=== PATIENT | male | born 1965 | race Caucasian/White ===

== ENCOUNTER 2024-10-22 14:03 | Emergency (ER) | payer BC, SELFPAY ==
[2024-10-22 14:06] VITALS: BP 143/97
--- NOTE | 2024-10-22 15:24 | ED.GENMED ---
History of Present Illness
General
Chief Complaint: Skin Surface Trauma
Source: patient
Exam Limitations: none
Time Seen by Provider: 10/22/24 14:09
Nursing documentation reviewed up to this point in time: agreed with
History of Present Illness
History of Present Illness:
58-year-old male presenting to the emergency department today with concerns of a laceration to his left hand that occurred from a clam knife prior to arrival. He claims the blade was clean. Denies additional concerns no numbness or weakness.
Review of Systems
Review of Systems
Allergies reviewed?: Yes
All Other Systems: ROS reviewed and negative except as documented in HPI and ROS
Phy Exam
Physical Exam
Physical Exam:
GENERAL: Alert , in no apparent distress
EYE: pupils equal and reactive
NECK: Supple, no significant adenopathy.
ENT: o/p clr, mmm.
CARDIAC: Regular rate and rhythm .
LUNGS: Clear breath sounds bilaterally, no acute respiratory distress, no wheezes/rales/rhonchi
ABDOMEN: Soft, without focal tenderness, no r/g, no cvat
NEUROLOGICAL: Alert and oriented, no focal neuro deficits
SKIN: Laceration to the left thenar eminence centimeters in length subcutaneous no tendon involvement explored to its base no foreign body seen warm and dry, skin intact.
MUSCULOSKELETAL: No edema, well perfused.
PSYCH: Normal and appropriate interaction.
Course
Orders/Labs/Results
Orders:
Orders
10/22/24 15:24
Tetanus/Diphth/Acelpertussis [Adacel] 0.5 ml IM .ONCE ONE
Vital Signs
Initial and Last Documented VS:
Initial Vital Signs
Temp Pulse Resp BP Pulse Ox
98.3 F 71 16 143/97 98
10/22/24 14:06 10/22/24 14:06 10/22/24 14:06 10/22/24 14:06 10/22/24 14:06
Last Documented Vital Signs
Temp Pulse Resp BP Pulse Ox
98.3 F 71 16 143/97 98
10/22/24 14:06 10/22/24 14:06 10/22/24 14:06 10/22/24 14:06 10/22/24 14:06
Procedures
Laceration Closure
Left Hand:
Status of Wound: clean
Size of Wound in cm: 3.5
Description of Wound Edges: sharp
Preparation: cleaned with saline
Anesthesia: 1% Lidocaine with epi
Revision/Debridement: routine- no revision and irrigate-direct pressure
Wound exploration: explored to base- no FB and no tendon involvement
Type of Closure: single layer closure
Skin Closure Material: 4-0 nylon
Number of sutures: 6
MDM/Problems Addressed
MDM/Problems Addressed:
58-year-old male presenting to the emergency department today with concerns of laceration to his left hand from a clam knife. Laceration was very clean in appearance was cleaned thoroughly here and closed with 6 not dissolving stitches. Otherwise
he also is on antibiotics for pneumonia which should cover as prophylaxis for his laceration. Otherwise stable for outpatient management return precautions given. Advised for suture removal in 10 to 14 days.
*Critical Care Note
Total Time (30-74mins, 75-104mins- exclusive of procedures): Not Applicable
ED Attending Note
-
Portions of this chart may have been created with voice recognition software.� Occasional wrong word or��sound alike� substitutions may have occurred due to the inherent limitations of voice recognition software.
Discharge Plan
Departure
Patient Disposition: Home (Routine Discharge)
Date of Disposition: 10/22/24
Time of Disposition: 15:24
Patient with high blood pressure during this ER visit?: No
Condition: Good
Covid-19: Not Applicable
Discharge Problem:
Hand laceration
Instructions: Laceration Repair With Stitches (DC)
Activity Restrictions/Additional Instructions:
You came to the emergency department today with concerns of a laceration to your left hand. This was cleaned thoroughly and closed with 6 not dissolving stitches. Please keep the area clean covered and follow-up in roughly 12 days for suture
removal. Return for any worsening, new or concerning symptoms.
Interventions
Interventions:
*Risk Screen - Suicide Last Done: 10/22/24 14:06
*General Assessment Last Done: 10/22/24 14:25
*Neglect/Abuse Screening Last Done: 10/22/24 14:06
*ED COVID-19 Vaccine History Last Done: 10/22/24 14:25
*Nursing Disposition Last Done: 10/22/24 15:33
ED-Skin Assessment Last Done: 10/22/24 14:25
Discharge Date and Time
Discharge Date/Time: 10/22/24 15:37
Print Language: PASHTO
[2024-10-22] MEDS: ADACEL 0.5 ML IM (15:30)
== END 2024-10-22 15:37 | disposition home or self-care (01) ==
LOC: EMR 14:03
PROVIDERS: EMERGENCY PHYSICIAN Emergency Medicine; FAMILY PHYSICIAN Family Medicine
DX: S61.412A Laceration without foreign body of left hand, initial encounter (principal); W26.0XXA Contact with knife, initial encounter; Z23 Encounter for immunization
CPT/HCPCS: 12002; 90471; 99282; 90715